=== PATIENT | male | born 1960 | race Caucasian/White ===

== ENCOUNTER 2017-12-16 15:59 | Emergency (ER) | payer OTHER ==
[2017-12-16] MEDS ORDERED: Ondansetron 4 MG/2 ML SDV IVPUSH ONE (16:06)
[2017-12-16] MEDS ORDERED: Sodium Chloride 0.9% 1,000 ML IV ONE (16:06)
[2017-12-16 16:34] VITALS: BP 202/89
[2017-12-16] MEDS ORDERED: HYDROmorphone 1 MG/ML Syringe IVPUSH ONE (16:41)
--- NOTE | 2017-12-16 16:41 | EDM.PDOC ---
ED HPI GENERAL MEDICAL PROBLEM - General Chief Complaint: Abdominal Pain Stated Complaint: abdominal pain/vomiting Time Seen by Provider: 12/16/17 16:25 Source of Information: Reports: Patient History Limitations: Reports: No Limitations - History of Present Illness INITIAL COMMENTS - FREE TEXT/NARRATIVE: 57 YO WM presents to ER complaining of lower abdominal pain, nausea/vomiting x 2 days. Pt reports he woke yesterday had breakfast and developed lower abdominal pain. Pt reports the pain lasted throughout the day. Pt thought he was constipated so he took Magnesium Citrate and vomited. Pt reports pain is constant and has become worse today prompting ER evaluation. Pt denies any fever /chills. Pt denies and flatus. Pt states he had a small bowel movement yesterday and today and states it was hard stool without blood. Onset Date: 12/15/17 Onset Time: 10:00 Duration: Day(s): (2) Location: Reports: Abdomen Quality: Reports: Ache Severity: Moderate Improves with: Reports: None Worsens with: Reports: None Associated Symptoms: Reports: Nausea/Vomiting. 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 (see below) Other Treatments [employer]ACHINE FEEDER: magnesium citrate Lower Abdomen Pain Score (Numeric/FACES): 9 - Related Data Allergies Allergy/AdvReac Type Severity Reaction Status Date / Time No Known Allergies Allergy Verified 10/10/16 19:26 Home Meds: Home Meds Famotidine [Pepcid] 20 mg PO BID #20 tab 12/16/17 [Rx] Ondansetron [Zofran ODT] 4 mg PO Q6H PRN #6 tab.dis 12/16/17 [Rx] Simethicone [Gas Relief] 125 mg PO Q6H PRN #30 tab.chew 12/16/17 [Rx] Past Medical History Other Genitourinary History: has one kidney (donated) Other Musculoskeletal History: shoulder repair; leg broke 2 place; collar bone broke 3 times; ankle broke once - Past Surgical History GI Surgical History: Reports: Appendectomy Social & Family History - Tobacco Use Smoking Status *Q: Current Every Day Smoker Years of Tobacco use: 5 Packs/Tins Daily: 2 - Caffeine Use Caffeine Use: Reports: Coffee - Recreational Drug Use Recreational Drug Use: No ED ROS GENERAL - Review of Systems Review Of Systems: See Below Constitutional: Reports: No Symptoms HEENT: Reports: No Symptoms Respiratory: Reports: No Symptoms Cardiovascular: Reports: No Symptoms Endocrine: Reports: No Symptoms GI/Abdominal: Reports: Abdominal Pain, Constipation, Decreased Appetite, Nausea , Vomiting. Denies: Black Stool, Bloody Stool, Diarrhea, Distension, Flatus, Hematemesis, Hematochezia, Melena, Mucous in Stool : Reports: No Symptoms Musculoskeletal: Reports: No Symptoms Skin: Reports: No Symptoms Neurological: Reports: No Symptoms Psychiatric: Reports: No Symptoms Hematologic/Lymphatic: Reports: No Symptoms Immunologic: Reports: No Symptoms ED EXAM, GI/ABD - Physical Exam Exam: See Below Exam Limited By: No Limitations General Appearance: Alert, WD/WN, No Apparent Distress Throat/Mouth: Normal Inspection, Normal Lips, Normal Teeth, Normal Gums, Normal Oropharynx, Normal Voice, No Airway Compromise Head: Atraumatic, Normocephalic Neck: Normal Inspection, Supple, Non-Tender, Full Range of Motion Respiratory/Chest: No Respiratory Distress, Lungs Clear, Normal Breath Sounds, No Accessory Muscle Use, Chest Non-Tender Cardiovascular: Normal Peripheral Pulses, Regular Rate, Rhythm, No Edema, No Gallop, No JVD, No Murmur, No Rub GI/Abdominal Exam: Soft, No Organomegaly, No Distention, No Abnormal Bruit, No Mass, Pelvis Stable, Tender (lower abdominal RLQ>LLQ). No: Normal Bowel Sounds , Non-Tender Back Exam: Normal Inspection, Full Range of Motion, NT Extremities: Normal Inspection, Normal Range of Motion, Non-Tender, Normal Capillary Refill, No Pedal Edema Neurological: Alert, Oriented, CN II-XII Intact, Normal Cognition, Normal Gait, Normal Reflexes, No Motor/Sensory Deficits Psychiatric: Normal Affect, Normal Mood Skin Exam: Warm, Dry, Intact, Normal Color, No Rash Lymphatic: No Adenopathy Course - Vital Signs Last Recorded V/S: Last Vital Signs Temp 36.8 C 12/16/17 16:21 Pulse 66 12/16/17 16:21 Resp 20 12/16/17 16:21 BP 202/89 H 12/16/17 16:21 Pulse Ox 98 12/16/17 16:21 - Orders/Labs/Meds Orders: Active Orders 24 hr Category Date Time Status Abdomen 1V Flat [CR] Stat Exams 12/16/17 16:06 Taken Abdomen Pelvis w Cont [CT] Stat Exams 12/16/17 16:42 Taken UA W/MICROSCOPIC [URIN] Stat Lab 12/16/17 16:06 Uncollected Sodium Chloride 0.9% [Normal Saline] Med 12/16/17 17:30 Active 50 ml FLUSH ASDIRECTED Medication Orders Sodium Chloride (Normal Saline) 50 ml FLUSH ASDIRECTED MOISES Labs: Laboratory Tests 12/16/17 12/16/17 Range/Units 16:05 16:05 WBC 15.1 H (5.0-10.0) 10^3/uL RBC 5.88 (4.50-6.00) 10^6/uL Hgb 17.8 H (13.0-17.0) g/dL Hct 57.9 H (40.0-52.0) % MCV 98.5 H (82.0-92.0) fL MCH 30.3 (27.0-31.0) pg MCHC 30.8 L (32.0-36.0) g/dL RDW 12.7 (11.5-14.5) % Plt Count 271 (150-300) 10^3/uL MPV 7.8 (7.4-10.4) fL Neut % (Auto) 77.5 H (50.0-70.0) % Lymph % (Auto) 16.8 L (20.0-40.0) % [place] % (Auto) 4.2 (2.0-8.0) % Eos % (Auto) 0.9 L (1.0-3.0) % Baso % (Auto) 0.6 (0.0-1.0) % Neut # (Auto) 11.8 H (2.5-7.0) 10^3/uL Lymph # (Auto) 2.5 (1.0-4.0) 10^3/uL [place] # (Auto) 0.6 (0.1-0.8) 10^3/uL Eos # (Auto) 0.1 (0.1-0.3) 10^3/uL Baso # (Auto) 0.1 (0.0-0.1) 10^3/uL Sodium 140 (136-145) mmol/L Potassium 3.8 (3.3-5.3) mmol/L Chloride 100 (98-115) mmol/L Carbon Dioxide 23.7 (21.0-32.0) mmol/L BUN 12 (6-25) mg/dL Creatinine 1.14 (0.51-1.17) mg/dL Est Cr Clr Drug Dosing 59.14 mL/min Estimated GFR (MDRD) > 60 mL/min Glucose 117 H (70-110) mg/dL Calcium 9.4 (8.7-10.3) mg/dL Total Bilirubin 0.6 (0.2-1.0) mg/dL AST 32 (15-37) U/L ALT 23 (12-78) U/L Alkaline Phosphatase 97 (46-116) IU/L Total Protein 8.3 H (6.4-8.2) g/dL Albumin 3.96 (3.00-4.80) g/dL Lipase 138 (73-393) U/L Meds: Medications Generic Name Dose Route Start Last Admin Trade Name Freq PRN Reason Stop Dose Admin Sodium Chloride 50 ml 12/16/17 17:30 Normal Saline FLUSH ASDIRECTED MOISES Discontinued Medications Generic Name Dose Route Start Last Admin Trade Name Freq PRN Reason Stop Dose Admin Hydromorphone HCl 1 mg 12/16/17 16:41 12/16/17 16:47 Dilaudid IVPUSH 12/16/17 16:42 1 mg ONETIME ONE Administration Sodium Chloride 1,000 mls @ 999 mls/hr 12/16/17 16:06 12/16/17 16:10 Normal Saline IV 12/16/17 17:06 999 mls/hr .BOLUS ONE Administration Iopamidol 75 ml 12/16/17 17:29 Isovue-300 (61%) IV 12/16/17 17:30 ONETIME ONE Ondansetron HCl 4 mg 12/16/17 16:06 12/16/17 16:10 Zofran IVPUSH 12/16/17 16:07 4 mg ONETIME ONE Administration - Radiology Interpretation Free Text/Narrative:: KUB- NAD CT ABd/Pelvis- Gastroenteritis Departure - Departure Time of Disposition: 17:51 Disposition: Home, Self-Care 01 Condition: Good Clinical Impression: Gastroenteritis - Discharge Information Prescriptions: Famotidine [Pepcid] 20 mg PO BID #20 tab Ondansetron [Zofran ODT] 4 mg PO Q6H PRN #6 tab.dis PRN Reason: Vomiting Simethicone [Gas Relief] 125 mg PO Q6H PRN #30 tab.chew PRN Reason: Pain Instructions: Viral Gastroenteritis, Adult, [id number], Abdominal Pain, Adult , [id number], Nausea and Vomiting, Adult, [id number], Constipation, Adult, [id number] Referrals: Tangela Berkowitz, APARTMENT RENTAL CLERK [Primary Care Provider] - Forms: ED Department Discharge - My Orders Last 24 Hours: My Active Orders 12/16/17 16:06 Abdomen 1V Flat [CR] Stat UA W/MICROSCOPIC [URIN] Stat 12/16/17 16:42 Abdomen Pelvis w Cont [CT] Stat 12/16/17 17:30 Sodium Chloride 0.9% [Normal Saline] 50 ml FLUSH ASDIRECTED - Assessment/Plan Last 24 Hours: My Active Orders 12/16/17 16:06 Abdomen 1V Flat [CR] Stat UA W/MICROSCOPIC [URIN] Stat 12/16/17 16:42 Abdomen Pelvis w Cont [CT] Stat 12/16/17 17:30 Sodium Chloride 0.9% [Normal Saline] 50 ml FLUSH ASDIRECTED Assessment:: 1. Gastroenteritis Plan: 1. zofran 4mg ODT Q8 PRN Vomiting 2. Pepcid 20mg BID x 5 days 3. Simethicone 160mg PO BID 4. clear liquid diet and progress as tolerated 5. follow up with PCP this week for recheck 6. return to ER for worsening symptoms
[2017-12-16 16:46] LABS: CHLORIDE,CL 100 mmol/L (98-115); SODIUM,NA 140 mmol/L (136-145)
[2017-12-16] MEDS ORDERED: Iopamidol 612 MG/ML 75 ML Bottle IV ONE (17:29)
[2017-12-16] MEDS ORDERED: Sodium Chloride 0.9% 50 ML SDV FLUSH SCH (17:30)
[2017-12-17] MEDS ORDERED: Sodium Chloride 0.9% 50 ML SDV FLUSH SCH (07:45)
== END 2017-12-16 18:10 | disposition home or self-care (01) ==
LOC: KA.ED 15:59
DX: K52.9 Noninfective gastroenteritis and colitis, unspecified (principal); F17.210 Nicotine dependence, cigarettes, uncomplicated; Z79.899 Other long term (current) drug therapy; Z98.890 Other specified postprocedural states
CPT/HCPCS: 74018; 74177; 80053; 81001; 83690; 85025; 96361; 96374; 96375; 99284; J1170; J2405; J7030; Q9967

== ENCOUNTER 2018-06-06 15:52 | Emergency (ER) | payer OTHER ==
[2018-06-06 16:03] VITALS: BP 163/80
[2018-06-06] MEDS ORDERED: Erythromycin Base 0.5% Ophth Oint 3.5 GM Tube EYELF ONE (16:11)
--- NOTE | 2018-06-06 16:17 | EDM.PDOC ---
ED HPI GENERAL MEDICAL PROBLEM - General Chief Complaint: Eye Problems Stated Complaint: OBJECT IN LEFT EYE Time Seen by Provider: 06/06/18 16:11 Source of Information: Reports: Patient History Limitations: Reports: No Limitations - History of Present Illness INITIAL COMMENTS - FREE TEXT/NARRATIVE: Patient is a 57-year-old gentleman who presents to the emergency department this afternoon with a complaint of left eye pain. Patient states approximately 11 a.m. this morning. He was outside his truck and was very windy and he felt sand go into his eye. Symptoms persisted through the day, so he decided to present to the emergency department. Patient denies any other pain or injury. Onset: Today Onset Date: 06/06/18 Onset Time: 11:00 Duration: Hour(s): Quality: Reports: Burning Severity: Mild Improves with: Reports: None Worsens with: Reports: None Associated Symptoms: Reports: No Other Symptoms Headache Pain Score (Numeric/FACES): 7 - Related Data Allergies Allergy/AdvReac Type Severity Reaction Status Date / Time No Known Allergies Allergy Verified 06/06/18 16:03 Home Meds: Home Meds Aspirin [Ecotrin] 325 mg PO DAILY 06/06/18 [History] Rosuvastatin [Crestor] 10 mg PO DAILY 06/06/18 [History] Past Medical History Other Genitourinary History: has one kidney (donated) Other Musculoskeletal History: shoulder repair; leg broke 2 place; collar bone broke 3 times; ankle broke once - Past Surgical History GI Surgical History: Reports: Appendectomy Social & Family History - Caffeine Use Caffeine Use: Reports: Coffee ED ROS GENERAL - Review of Systems Review Of Systems: ROS reveals no pertinent complaints other than HPI. Constitutional: Reports: No Symptoms HEENT: Reports: Eye Pain Respiratory: Reports: No Symptoms Cardiovascular: Reports: No Symptoms Endocrine: Reports: No Symptoms GI/Abdominal: Reports: No Symptoms : Reports: No Symptoms Musculoskeletal: Reports: No Symptoms Skin: Reports: No Symptoms Neurological: Reports: No Symptoms Psychiatric: Reports: No Symptoms Hematologic/Lymphatic: Reports: No Symptoms Immunologic: Reports: No Symptoms ED EXAM GENERAL W FULL EYE - Physical Exam Exam: See Below Exam Limited By: No Limitations General Appearance: Alert, WD/WN, No Apparent Distress Eye Exam: Left Eye: Conjunctival Injection, Corneal Abrasion Visual Acuity (R) 20/: 20 Visual Acuity (L) 20/: 20 With Correction: No Conjunctiva & Sclera: Left: Injected Cornea Exam: Left: Corneal Abrasion Extraocular Movements: Bilateral: Intact Pupils: Normal Accommodation Throat/Mouth: Normal Inspection, Normal Oropharynx, No Airway Compromise Head: Atraumatic, Normocephalic Respiratory/Chest: No Respiratory Distress Neurological: Alert, Oriented, Normal Cognition Psychiatric: Normal Affect, Normal Mood Skin Exam: Warm, Dry, Intact, Normal Color, No Rash ED EYE w/ Add Procedure - Eye Procedure Alcaine Drops Administered: Yes Eye FB Removal: Other (. No foreign body noted) Eye Irrigated w/ Saline (ccs): 30 Antibiotic Oinment/Drps Admin: Left Eye Progress: Tolerated procedure well Course - Vital Signs Last Recorded V/S: Last Vital Signs Temp 98.4 F 06/06/18 16:01 Pulse 98 06/06/18 16:01 Resp 16 06/06/18 16:01 BP 163/80 H 06/06/18 16:01 Pulse Ox 95 06/06/18 16:01 - Orders/Labs/Meds Orders: Active Orders 24 hr Category Date Time Status Erythromycin Base [Erythromycin 0.5% Ophth Oint] Med 06/06/18 16:11 Once 0.5 gm EYELF ONETIME ONE - Re-Assessments/Exams Free Text/Narrative Re-Assessment/Exam: 06/06/18 16:15 Patient afebrile, nontoxic appearing. Tolerated procedure well. Erythromycin ophthalmic ointment applied. Patient will follow-up at [facility] next week. Departure - Departure Time of Disposition: 16:16 Disposition: Home, Self-Care 01 Condition: Good Clinical Impression: Corneal abrasion Qualifiers: Encounter type: initial encounter Laterality: left Qualified Code(s): S05.02XA - Injury of conjunctiva and corneal abrasion without foreign body, left eye, initial encounter - Discharge Information Instructions: Corneal Abrasion, [id number] Referrals: John Padron MD [Primary Care Provider] - Additional Instructions: Follow-up at [facility] in next 2-3 days. Return to emergency from sooner symptoms continue or worsen. - My Orders Last 24 Hours: My Active Orders 06/06/18 16:11 Erythromycin Base [Erythromycin 0.5% Ophth Oint] 0.5 gm EYELF ONETIME ONE - Assessment/Plan Last 24 Hours: My Active Orders 06/06/18 16:11 Erythromycin Base [Erythromycin 0.5% Ophth Oint] 0.5 gm EYELF ONETIME ONE
== END 2018-06-06 16:19 | disposition home or self-care (01) ==
LOC: KA.ED 15:52
DX: S05.02XA Injury of conjunctiva and corneal abrasion without foreign body, left eye, initial encounter (principal); Z79.82 Long term (current) use of aspirin; Z79.899 Other long term (current) drug therapy; W45.8XXA Other foreign body or object entering through skin, initial encounter
CPT/HCPCS: 99283; A9270-GY

== ENCOUNTER 2019-01-28 12:58 | Emergency (ER) | payer OTHER ==
[2019-01-28] MEDS ORDERED: Clopidogrel 75 MG Tab PO ONE (13:05)
[2019-01-28] MEDS ORDERED: Metoprolol Succinate 25 MG Tab.ER PO ONE (13:05)
[2019-01-28] MEDS ORDERED: Metoprolol Tartrate 50 MG Tab ONE (13:05)
[2019-01-28] MEDS ORDERED: Metoprolol Tartrate 25 MG Tab PO ONE (13:08)
[2019-01-28] MEDS ORDERED: Heparin Sodium 5,000 Units/ML Vial ONE (13:14)
[2019-01-28] MEDS ORDERED: Metoprolol Tartrate 50 MG Tab PO ONE (13:15)
[2019-01-28] MEDS ORDERED: Tenecteplase 50 MG Kit IV ONE (13:16)
[2019-01-28] MEDS ORDERED: D5W ONE (13:21)
[2019-01-28] MEDS ORDERED: HEPARIN SODIUM ONE (13:21)
--- NOTE | 2019-01-28 13:36 | CR ---
[id number] RAD/RAD Chest PA or AP 1V EXAM: SINGLE VIEW CHEST. INDICATION: CHEST PAIN COMPARISON: CORRELATION IS MADE WITH THE EXAM OF NOVEMBER 09, 2018. FINDINGS: The lungs are clear. The cardiomediastinal contour is stable. IMPRESSION: STABLE CHEST. Adonis Kruger MD 01/28/19 [id number] Thank you for allowing us to participate in the care of your patient.
[2019-01-28 13:37] LABS: CHLORIDE,CL 100 mmol/L (98-115); SODIUM,NA 136 mmol/L (136-145)
--- NOTE | 2019-01-28 13:42 | EDM.PDOC ---
ED HPI GENERAL MEDICAL PROBLEM - General Chief Complaint: Chest Pain Stated Complaint: STEMI Time Seen by Provider: 01/28/19 13:09 Source of Information: Reports: Patient History Limitations: Reports: No Limitations - History of Present Illness INITIAL COMMENTS - FREE TEXT/NARRATIVE: Patient is a 58-year-old gentleman who presents to the emergency department this afternoon via EMS secondary to chest pain. He states that he was working today and developed some pain in his right shoulder which progressed to his right chest. Pain was described as intense, sharp, and constant. During EMS transport patient was given nitroglycerin and 8 mg of morphine without relief. Initial EKG upon arrival showed inferior infarct and acute STEMI. Second IV was started, lab work was drawn, and cardiology was contacted at [facility]. After speaking to Dr. Baron, cardiology at [facility], heparin and TNKase was initiated. Patient's vital signs remained stable, pain was mostly relieved, and patient was transported via [facility] ambulance to [facility]. Onset: Today, Sudden Duration: Minutes: Location: Reports: Chest Quality: Reports: Sharp Severity: Severe Improves with: Reports: None Worsens with: Reports: None Associated Symptoms: Reports: Chest Pain Treatments [facility]: Reports: EKG, IV/IO, Nitroglycerin - Related Data Allergies Allergy/AdvReac Type Severity Reaction Status Date / Time prednisone Allergy Leg Cramps Verified 01/28/19 13:11 Home Meds: Home Meds . [No Known Home Meds] 11/09/18 [History] Past Medical History HEENT History: Reports: Impaired Vision Cardiovascular History: Reports: Blood Clots/VTE/DVT, High Cholesterol Respiratory History: Reports: Sleep Apnea, Other (See Below) Other Respiratory History: daily smoker Other Genitourinary History: has one kidney (donated) Musculoskeletal History: Reports: Arthritis, Fracture Other Musculoskeletal History: shoulder repair; leg broke 2 place; collar bone broke 3 times; ankle broke once Neurological History: Reports: Other (See Below) Other Neuro History: [place] in 2002 - Infectious Disease History Infectious Disease History: Reports: Chicken Pox - Past Surgical History GI Surgical History: Reports: Appendectomy Social & Family History - Family History Family Medical History: Noncontributory - Caffeine Use Caffeine Use: Reports: Coffee ED ROS GENERAL - Review of Systems Review Of Systems: ROS reveals no pertinent complaints other than HPI. Constitutional: Reports: No Symptoms HEENT: Reports: No Symptoms Respiratory: Reports: No Symptoms Cardiovascular: Reports: Chest Pain Endocrine: Reports: No Symptoms GI/Abdominal: Reports: No Symptoms : Reports: No Symptoms Musculoskeletal: Reports: No Symptoms Skin: Reports: No Symptoms Neurological: Reports: No Symptoms Psychiatric: Reports: No Symptoms Hematologic/Lymphatic: Reports: No Symptoms Immunologic: Reports: No Symptoms ED EXAM, GENERAL - Physical Exam Exam: See Below Exam Limited By: No Limitations General Appearance: Alert, WD/WN, No Apparent Distress Throat/Mouth: Normal Inspection, Normal Oropharynx, No Airway Compromise Head: Atraumatic, Normocephalic Neck: Normal Inspection Respiratory/Chest: No Respiratory Distress, Lungs Clear, Normal Breath Sounds, No Accessory Muscle Use Cardiovascular: Regular Rate, Rhythm, No Murmur Peripheral Pulses: 2+: Brachial (L), Brachial (R), Radial (L), Radial (R), Femoral (L), Femoral (R) GI/Abdominal: Normal Bowel Sounds, Soft, Non-Tender, No Abnormal Bruit Back Exam: Normal Inspection Extremities: Normal Inspection, No Pedal Edema Neurological: Alert, Oriented, Normal Cognition Psychiatric: Anxious Skin Exam: Warm, Dry, Intact, Normal Color, No Rash EKG INTERPRETATION EKG Date: 01/28/19 Time: 13:05 Rhythm: Other (Sinus rhythm with a first-degree AV block) Rate (Beats/Min): 95 ST-T: Elevated Comparison: NA - No Prior EKG EKG Interpretation Comments: Acute STEMI Course - Vital Signs Last Recorded V/S: Last Vital Signs Temp 96.7 F 01/28/19 13:00 Pulse 84 01/28/19 13:25 Resp 22 H 01/28/19 13:25 BP 134/68 01/28/19 13:25 Pulse Ox 100 01/28/19 13:15 - Orders/Labs/Meds Orders: Active Orders 24 hr Category Date Time Status EKG Documentation Completion [RC] ASDIRECTED Care 01/28/19 13:07 Active EKG 12 Lead [EK] Routine Ther 01/28/19 13:07 Ordered Labs: Laboratory Tests 01/28/19 01/28/19 01/28/19 Range/Units 12:30 12:30 12:30 WBC 13.58 H (5.00-10.00) 10^3/uL RBC 5.35 (4.50-6.00) 10^6/uL Hgb 17.9 H (13.0-17.0) g/dL Hct 51.0 (40.0-52.0) % MCV 95.3 H D (82.0-92.0) fL MCH 33.5 H (27.0-31.0) pg MCHC 35.1 (32.0-36.0) g/dL RDW 12.2 (11.5-14.5) % Plt Count 249 (150-400) 10^3/uL MPV 9.7 (7.4-10.4) fL Immature Gran % (Auto) 0.5 (0.0-5.0) % Neut % (Auto) 58.3 (50.0-70.0) % Lymph % (Auto) 29.7 (20.0-40.0) % [place] % (Auto) 8.7 H (2.0-8.0) % Eos % (Auto) 2.4 (1.0-3.0) % Baso % (Auto) 0.4 (0.0-1.0) % Immature Gran # (Auto) 0.07 (0.00-0.50) 10^3/uL Neut # (Auto) 7.91 H (2.50-7.00) 10^3/uL Lymph # (Auto) 4.04 H (1.00-4.00) 10^3/uL [place] # (Auto) 1.18 H (0.10-0.80) 10^3/uL Eos # (Auto) 0.32 H (0.10-0.30) 10^3/uL Baso # (Auto) 0.06 (0.00-0.10) 10^3/uL PT 8.7 L (8.9-11.4) SEC INR 0.9 (0.9-1.1) APTT 22.5 L (23.1-31.3) SEC Sodium 136 (136-145) mmol/L Potassium 3.9 (3.3-5.3) mmol/L Chloride 100 (98-115) mmol/L Carbon Dioxide 16.9 L (21.0-32.0) mmol/L Anion Gap 23.0 H (5-15) mmol/L BUN 10 (6-25) mg/dL Creatinine 1.13 (0.51-1.17) mg/dL Est Cr Clr Drug Dosing TNP Estimated GFR (MDRD) > 60 mL/min Glucose 141 H (75 - 99) mg/dL Calcium 8.4 L (8.7-10.3) mg/dL Magnesium 1.8 (1.8-2.4) mg/dL Total Bilirubin 0.5 (0.2-1.0) mg/dL AST 39 H (15-37) U/L ALT 29 (12-78) U/L Alkaline Phosphatase 82 (46-116) IU/L Troponin I 0.27 H* (0.00-0.070) ng/mL Total Protein 6.9 (6.4-8.2) g/dL Albumin 3.41 (3.00-4.80) g/dL Meds: Medications Discontinued Medications Generic Name Dose Route Start Last Admin Trade Name Freq PRN Reason Stop Dose Admin Clopidogrel Bisulfate 300 mg 01/28/19 13:05 01/28/19 13:10 Plavix PO 01/28/19 13:06 300 mg ONETIME ONE Administration Heparin Sodium (Porcine) Confirm 01/28/19 13:14 01/28/19 13:19 Heparin Sodium Administered 01/28/19 13:15 5,000 units Dose Administration 5,000 units .ROUTE .STK-MED ONE Heparin Sodium/Dextrose Confirm 01/28/19 13:21 01/28/19 13:35 Administered 01/28/19 13:22 Not Given Dose 250 mls @ as directed .ROUTE .STK-MED ONE Metoprolol Succinate 25 mg 01/28/19 13:05 01/28/19 13:10 Toprol Xl PO 01/28/19 13:06 Not Given ONETIME ONE Metoprolol Tartrate 25 mg 01/28/19 13:08 01/28/19 13:10 Lopressor PO 01/28/19 13:09 Not Given ONETIME ONE Metoprolol Tartrate Confirm 01/28/19 13:05 01/28/19 13:10 Lopressor Administered 01/28/19 13:06 Not Given Dose 50 mg .ROUTE .STK-MED ONE Metoprolol Tartrate 25 mg 01/28/19 13:15 01/28/19 13:09 Lopressor PO 01/28/19 13:16 25 mg ONETIME ONE Administration Tenecteplase 40 mg 01/28/19 13:16 01/28/19 13:18 Tnkase IV 01/28/19 13:17 40 mg ONETIME ONE Administration Protocol - Re-Assessments/Exams Free Text/Narrative Re-Assessment/Exam: 01/28/19 13:50 Vital signs were stable and patient was transported via ALS ambulance to [facility] Departure - Departure Time of Disposition: 15:25 Disposition: DC/Tfer to Acute Hospital 02 Reason for Transfer *Q: Primary PCI Indicated Condition: Critical Clinical Impression: Acute myocardial infarction Qualifiers: Myocardial infarction type: ST elevation myocardial infarction Involved coronary artery: unspecified coronary artery Qualified Code(s): I21.3 - ST elevation (STEMI) myocardial infarction of unspecified site Referrals: John Padron MD [Primary Care Provider] - Forms: ED Department Discharge - My Orders Last 24 Hours: My Active Orders 01/28/19 13:07 EKG Documentation Completion [RC] ASDIRECTED EKG 12 Lead [EK] Routine - Assessment/Plan Last 24 Hours: My Active Orders 01/28/19 13:07 EKG Documentation Completion [RC] ASDIRECTED EKG 12 Lead [EK] Routine Assessment:: Acute STEMI
[2019-01-28 14:15] VITALS: BP 134/68
== END 2019-01-28 13:27 ==
LOC: KA.ED 12:58
DX: I21.3 ST elevation (STEMI) myocardial infarction of unspecified site (principal); E78.00 Pure hypercholesterolemia, unspecified; Z88.8 Allergy status to other drugs, medicaments and biological substances
CPT/HCPCS: 36415; 71045; 80053; 83735; 84484; 85025; 85610; 85730; 93005; 96374; 96375; 99285-25; A9270-GY; J1644; J3101

== ENCOUNTER 2021-05-27 21:27 | Emergency (ER) | payer BC, OTHER ==
[2021-05-27] MEDS ORDERED: Sodium Chloride 0.9% 10 ML Syringe FLUSH PRN (21:43)
[2021-05-27] MEDS ORDERED: Aspirin 81 MG Tab.Chew PO ONE (21:43)
[2021-05-27] MEDS ORDERED: Nitroglycerin 0.4 MG Tab.SL ONE (21:52)
[2021-05-27] MEDS: Nitroglycerin 0.4 MG Tab.SL SL ONE ×3 (21:54→22:54)
--- NOTE | 2021-05-27 22:08 | EDM.PDOC ---
ED HPI GENERAL MEDICAL PROBLEM - General Chief Complaint: Chest Pain Stated Complaint: R arm pain, hx of VA Time Seen by Provider: 05/27/21 21:46 Source of Information: Reports: Patient History Limitations: Reports: No Limitations - History of Present Illness INITIAL COMMENTS - FREE TEXT/NARRATIVE: Presents emergency room for chief complaint of severe right arm pain which start ed 830 tonight. Patient was driving his vehicle and the pain started and it was very severe 9 out of 10. Patient got home called his brother was brought to emergency room right away. Patient has history of acute VA 2 years ago had 2 stents placed in [place] and the patient had exact same symptoms of this when he had his previous heart attack. Patient has family history of heart disease, he has history of hypertension and hyperlipidemia he currently smokes 2 packs a day. 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 Patient's pain on arrival is 5 out of 10 right arm pain unable to reproduce or make the pain worse or improvement. Patient did have a long day riding 4 wheelers yesterday, and he admits of drinking alcohol. Patient noticed considerable more of lower extremity edema moderate pitting. 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 Patient did not take anything prior to arrival for his pain. - Related Data Allergies Allergy/AdvReac Type Severity Reaction Status Date / Time prednisone Allergy Leg Cramps Verified 05/27/21 21:29 Home Meds: Home Meds Aspirin [Aspirin EC] 81 mg PO DAILY 05/27/21 [History] atorvaSTATin [Lipitor] 40 mg PO BEDTIME 05/27/21 [History] carvediloL [Carvedilol] 3.125 mg PO DAILY 05/27/21 [History] lisinopriL [Lisinopril] 2.5 mg PO BID 05/27/21 [History] Past Medical History HEENT History: Reports: Impaired Vision Cardiovascular History: Reports: Blood Clots/VTE/DVT, High Cholesterol Respiratory History: Reports: Sleep Apnea, Other (See Below) Other Respiratory History: daily smoker Other Genitourinary History: has one kidney (donated) Musculoskeletal History: Reports: Arthritis, Fracture Other Musculoskeletal History: shoulder repair; leg broke 2 place; collar bone broke 3 times; ankle broke once Neurological History: Reports: Other (See Below) Other Neuro History: [place] in 2003 - Infectious Disease History Infectious Disease History: Reports: Chicken Pox - Past Surgical History GI Surgical History: Reports: Appendectomy Social & Family History - Family History Family Medical History: No Pertinent Family History - Caffeine Use Caffeine Use: Reports: Coffee ED ROS GENERAL - Review of Systems Review Of Systems: See Below Constitutional: Reports: No Symptoms HEENT: Reports: No Symptoms Respiratory: Reports: No Symptoms Cardiovascular: Reports: Edema (lower edema). Denies: Chest Pain GI/Abdominal: Reports: Abdominal Pain, Other (intermitten RUQ abd pain at times for the past weeks.) Musculoskeletal: Reports: Arm Pain (sever right arm pain, sharp, entire arm, unable to make it worse or better ) Skin: Reports: No Symptoms Neurological: Reports: No Symptoms Psychiatric: Reports: No Symptoms ED EXAM, GENERAL - Physical Exam Exam: See Below Exam Limited By: No Limitations General Appearance: Alert, WD/WN, No Apparent Distress Head: Atraumatic, Normocephalic Neck: Normal Inspection, Supple Respiratory/Chest: No Respiratory Distress, Lungs Clear, Normal Breath Sounds, No Accessory Muscle Use Cardiovascular: Normal Peripheral Pulses, Regular Rate, Rhythm, Other (moderate +2 lower leg and pedal edema) Peripheral Pulses: 1+: Radial (L), 2+: Radial (R), Posterior Tibial (L), Posterior Tibial (R), Dorsalis Pedis (L), Dorsalis Pedis (R) GI/Abdominal: Normal Bowel Sounds, Soft, Non-Tender. No: Tender Back Exam: Normal Inspection, Full Range of Motion Extremities: Normal Inspection, Normal Range of Motion, Pedal Edema, Arm Pain. No: Leg Pain, Limited Range of Motion, Increased Warmth, Redness Neurological: Alert, Oriented Psychiatric: Normal Affect, Normal Mood Skin Exam: Warm, Dry, Intact #1 Interpretation EKG Date: 05/27/21 Time: 21:41 Rhythm: NSR [place]: LAD-Left [place] Deviation P-Wave: Present QRS: Normal ST-T: Normal QT: Normal Comparison: NA - No Prior EKG #2 Interpretation EKG Date: 05/27/21 Time: 23:00 Rhythm: NSR Rate (Beats/Min): 87 [place]: LAD-Left [place] Deviation P-Wave: Present QRS: Normal ST-T: Normal QT: Normal Comparison: NA - No Prior EKG Course - Vital Signs Last Recorded V/S: Last Vital Signs Temp 97.7 F 05/27/21 21:30 Pulse 89 05/27/21 22:02 Resp 20 05/27/21 22:02 BP 144/83 H 05/27/21 22:15 Pulse Ox 92 L 05/27/21 22:02 - Orders/Labs/Meds Orders: Active Orders 24 hr Category Date Time Status Cardiac Monitoring [RC] . DIRECTED Care 05/27/21 21:43 Active EKG Documentation Completion [RC] ASDIRECTED Care 05/27/21 21:44 Active EKG Documentation Completion [RC] STAT Care 05/27/21 21:43 Active Peripheral IV Care [RC] . DIRECTED Care 05/27/21 21:44 Active Chest 1V Frontal [CR] Stat Exams 05/27/21 21:44 Ordered PTT,PARTIAL THROMBOPLSTIN TIME [COAG] Stat Lab 05/27/21 23:10 Received Heparin Sodium/D5W 250 ml Med 05/27/21 23:00 Active IV TITRATE Sodium Chloride 0.9% [Saline Flush] Med 05/27/21 21:43 Active 10 ml FLUSH Q8HR PRN Peripheral IV Insertion Adult [OM.PC] Stat Oth 05/27/21 21:43 Ordered EKG 12 Lead [EK] Stat Ther 05/27/21 21:44 Ordered Medication Orders Heparin Sodium/Dextrose () 250 mls @ 9.525 mls/hr IV TITRATE MOISES; Protocol Sodium Chloride (Sodium Chloride 0.9% 10 Ml Syringe) 10 ml FLUSH Q8HR PRN PRN Reason: keep vein open Labs: Laboratory Tests 05/27/21 05/27/21 05/27/21 Range/Units 21:45 21:45 21:45 WBC 10.39 H (5.00-10.00) 10^3/uL RBC 5.11 (4.50-6.00) 10^6/uL Hgb 16.8 (13.0-17.0) g/dL Hct 49.6 (40.0-52.0) % MCV 97.1 H (82.0-92.0) fL MCH 32.9 H (27.0-31.0) pg MCHC 33.9 (32.0-36.0) g/dL RDW 12.7 (11.5-14.5) % Plt Count 220 (150-400) 10^3/uL MPV 8.9 (7.4-10.4) fL Immature Gran % (Auto) 0.7 (0.0-5.0) % Neut % (Auto) 64.3 (50.0-70.0) % Lymph % (Auto) 19.9 L (20.0-40.0) % [place] % (Auto) 10.2 H (2.0-8.0) % Eos % (Auto) 4.6 H (1.0-3.0) % Baso % (Auto) 0.3 (0.0-1.0) % Neut # (Auto) 6.68 (2.50-7.00) 10^3/uL Lymph # (Auto) 2.07 (1.00-4.00) 10^3/uL [place] # (Auto) 1.06 H (0.10-0.80) 10^3/uL Eos # (Auto) 0.48 H (0.10-0.30) 10^3/uL Baso # (Auto) 0.03 (0.00-0.10) 10^3/uL Immature Gran # (Auto) 0.07 (0.00-0.50) 10^3/uL Sodium 139 (136-145) mmol/L Potassium 3.9 (3.5-5.1) mmol/L Chloride 104 (98-107) mmol/L Carbon Dioxide 26.8 (21.0-32.0) mmol/L Anion Gap 12.1 (5-15) mmol/L BUN 11 (7-18) mg/dL Creatinine 1.00 (0.51-1.17) mg/dL Est Cr Clr Drug Dosing 64.96 mL/min Estimated GFR (MDRD) > 60 mL/min Glucose 106 (70-140) mg/dL Calcium 8.5 L (8.7-10.3) mg/dL Total Bilirubin 0.1 L (0.2-1.0) mg/dL AST 58 H (15-37) U/L ALT 87 H (14-63) U/L Alkaline Phosphatase 114 (46-116) U/L Troponin I High Sens 76.500 H* (0-76.000) pg/mL B-Natriuretic Peptide 93 (0-100) pg/mL Total Protein 6.5 (6.4-8.2) g/dL Albumin 2.99 L (3.40-5.00) g/dL Meds: Medications Generic Name Dose Route Start Last Admin Trade Name Freernesto PRN Reason Stop Dose Admin Heparin Sodium/Dextrose 250 mls @ 9.525 mls/hr 05/27/21 23:00 IV TITRATE MOISES Protocol 12 UNITS/KG/HR Sodium Chloride 10 ml 05/27/21 21:43 Sodium Chloride 0.9% 10 Ml Syringe FLUSH Q8HR PRN keep vein open Discontinued Medications Generic Name Dose Route Start Last Admin Trade Name Freq PRN Reason Stop Dose Admin Aspirin 324 mg 05/27/21 21:43 05/27/21 21:58 Aspirin 81 Mg Tab.Chew PO 05/27/21 21:44 324 mg ONETIME ONE Administration Heparin Sodium (Porcine) 4,000 units 05/27/21 22:55 Heparin Sodium 5,000 Units/Ml Vial IVPUSH 05/27/21 22:56 .BOLUS ONE Nitroglycerin 0.4 mg 05/27/21 21:52 05/27/21 22:15 Nitroglycerin 0.4 Mg Tab.Sl SL 05/27/21 21:53 0.4 mg ONETIME ONE Administration Nitroglycerin Confirm 05/27/21 21:52 05/27/21 22:17 Nitroglycerin 0.4 Mg Tab.Sl Administered 05/27/21 21:53 Not Given Dose 0.4 mg .ROUTE .K-MED ONE - Re-Assessments/Exams Free Text/Narrative Re-Assessment/Exam: 05/27/21 22:12 EKG was done stat on arrival patient was given 324 mg of aspirin and 4 mg nitro sublingual after IV was established. When the nitro was given patient's pain was 4-10. Labs were completed and x-ray chest as well. 05/27/21 22:14 Due to the patient's high risk factors what [place] [id number] call was called and started the transfer process. I am waiting for callback from hospitalist. 05/27/21 22:17 Patient's right arm pain went down to minimal and then it came back to moderate to a 6 out of 10. Patient was given a dose of nitro will reassess at that helps his pain. 05/27/21 22:[address] Berry who accepted his care to [facility]. Wait on a bed and will contact EMS for transfer. Heparin drip started after check his PTT. Patient was given third dose of nitro to help with the pain, currently the pain is severe at 10 right arm pain. Repeat EKG as well. Pain is down to a 2 out of 10 nitro given his third dose will reassess. 05/27/21 22:56 Patient's pain 1 on 10 after third dose blood pressure 120/68 heart rate 86 patient is resting comfortably in bed on his phone. We did receive the room from [facility] were called for transfer now. Repeat EKG no changes no signs of STEMI. 05/27/21 23:07 05/27/21 23:22 EMS here to transfer patient. Departure - Departure Time of Disposition: 22:57 Disposition: DC/Tfer to Acute Hospital 02 Reason for Transfer *Q: Other (elevated trop, r/o ACS) Condition: Serious Clinical Impression: Right arm pain, History of myocardial infarction, Troponin level elevated Referrals: PCP,Unobtain [Primary Care Provider] - Forms: ED Department Discharge Sepsis Event Note (ED) - Evaluation Sepsis Screening Result: No Definite Risk - Focused Exam Vital Signs: Vital Signs Temp Pulse Resp BP BP BP Pulse Ox 05/27/21 22:15 144/83 H 05/27/21 22:02 89 20 131/88 92 L 05/27/21 21:54 149/89 H 05/27/21 21:49 85 15 149/89 H 95 05/27/21 21:30 97.7 F 90 18 167/97 H 94 L - My Orders Last 24 Hours: My Active Orders 05/27/21 21:43 Cardiac Monitoring [RC] . DIRECTED EKG Documentation Completion [RC] STAT Sodium Chloride 0.9% [Saline Flush] 10 ml FLUSH Q8HR PRN Peripheral IV Insertion Adult [OM.PC] Stat 05/27/21 21:44 EKG Documentation Completion [RC] ASDIRECTED Peripheral IV Care [RC] . DIRECTED Chest 1V Frontal [CR] Stat EKG 12 Lead [EK] Stat 05/27/21 23:00 Heparin Sodium/D5W 250 ml IV TITRATE 05/27/21 23:10 PTT,PARTIAL THROMBOPLSTIN TIME [COAG] Stat - Assessment/Plan Last 24 Hours: My Active Orders 05/27/21 21:43 Cardiac Monitoring [RC] . DIRECTED EKG Documentation Completion [RC] STAT Sodium Chloride 0.9% [Saline Flush] 10 ml FLUSH Q8HR PRN Peripheral IV Insertion Adult [OM.PC] Stat 05/27/21 21:44 EKG Documentation Completion [RC] ASDIRECTED Peripheral IV Care [RC] . DIRECTED Chest 1V Frontal [CR] Stat EKG 12 Lead [EK] Stat 05/27/21 23:00 Heparin Sodium/D5W 250 ml IV TITRATE 05/27/21 23:10 PTT,PARTIAL THROMBOPLSTIN TIME [COAG] Stat
[2021-05-27 22:21] LABS: ANION GAP 12.1 mmol/L (5-15); CHLORIDE,CL 104 mmol/L (98-107); SODIUM,NA 139 mmol/L (136-145)
[2021-05-27] MEDS ORDERED: Heparin Sodium 5,000 Units/ML Vial IVPUSH ONE (22:55)
[2021-05-27] MEDS ORDERED: Heparin Sodium/D5W 250 ML IV SCH (23:00)
[2021-05-28 01:23] VITALS: BP 130/78; PULSE 78
--- NOTE | 2021-05-28 08:26 | CR ---
[id number] RAD/RAD Chest PA or AP 1V EXAM: RAD Chest PA or AP 1V INDICATION: CHEST PAIN COMPARISON: January 28, 2019. DISCUSSION: Cardiomediastinal silhouette is normal in size and contour. Small left pleural effusion. Pulmonary hyperinflation. No pneumothorax. IMPRESSION: Small left pleural effusion. Liam Jenkins DO 05/28/21 0825 Thank you for allowing us to participate in the care of your patient.
== END 2021-05-27 23:35 ==
LOC: KA.ED 21:27
DX: M79.601 Pain in right arm (principal); I25.2 Old myocardial infarction; R79.89 Other specified abnormal findings of blood chemistry; R60.0 Localized edema; E78.00 Pure hypercholesterolemia, unspecified; Z79.899 Other long term (current) drug therapy; Z88.8 Allergy status to other drugs, medicaments and biological substances
CPT/HCPCS: 36415; 71045; 80053; 83880; 84484; 85025; 85730; 93005; 96374; 99284; 99285-25; A9270-GY; J1644